=== PATIENT | female | born 1990 | race Two or more races ===

== ENCOUNTER 2017-08-31 04:16 | Emergency (ER) | payer SELFPAY ==
[~2017-08-31] VITALS: Ht 165.1 cm; Wt 99.8 kg
--- NOTE | 2017-08-31 04:19 | NUR ---
PT BIB [facility] C/C OF UNWITNESSED SEIZURE. PT AA/O X4. NAD. ST ON MONITOR AT 124. AMBULATORY FROM AMBULANCE GURNEY TO HOSPITAL BED. MD AT BEDSIDE FOR EVAL. AWAITING ORDERS.
[2017-08-31] MEDS ORDERED: IV NS 0.9% 500 ML BAG IV ONE (04:30)
[2017-08-31] MEDS ORDERED: ONDANSETRON HCL/PF 4 MG/2 ML VIAL IVP ONE (04:30)
[2017-08-31] MEDS ORDERED: MORPHINE SULFATE INJ 2 MG/ML DISP.SYRIN IV ONE (04:30)
[2017-08-31] MEDS ORDERED: ONDANSETRON HCL/PF 4 MG/2 ML VIAL ONE (04:35)
[2017-08-31] MEDS ORDERED: MORPHINE SULFATE INJ 2 MG/ML DISP.SYRIN ONE (04:36)
--- NOTE | 2017-08-31 05:00 | NUR ---
LAB AT BEDSIDE FOR BLOOD AND URINE PROCEDURE.
[2017-08-31 05:07] LABS: BASOPHILS # (AUTO) 0.1 /CMM (0.0-0.2); BASOPHILS % (AUTO) 0.5 % (0.0-2.0); EOSINOPHILS % (AUTO) 0.6 % (0.0-6.0); HEMATOCRIT 37 % (33-45); HEMOGLOBIN 12.3 g/dL (11.5-14.8); LYMPHOCYTES % (AUTO) 38.9 % (20.0-44.0); MEAN CORPUSCULAR HEMOGLOBIN 31 PG (26.0-33.0); MEAN CORPUSCULAR HGB CONC 33 g/dl (31.0-36.0); MEAN CORPUSCULAR VOLUME 93 fL (82-100); MONOCYTES # (AUTO) 0.9 /CMM (0.1-1.30); PLATELET COUNT (AUTO) 562 /CMM (150-450); RDW COEFFICIENT OF VARIATION 13.3 (11.5-15.0); RED BLOOD CELL COUNT(AUTO) 3.99 MIL/uL (4.0-5.2); WHITE BLOOD COUNT (AUTO) 18.1 K/uL (4.3-11.0)
[2017-08-31 05:23] LABS: CALCIUM, SERUM 9.1 mg/dL (8.5-10.1); CARBON DIOXIDE 19 mmol/L (21-32); CHLORIDE 102 mmol/L (98-107); CREATININE 0.9 mg/dL (0.6-1.3); GLUCOSE 115 mg/dL (74-106); SODIUM SERUM 137 mmol/L (136-145); UREA NITROGEN, BLOOD 11 mg/dL (7-18)
--- NOTE | 2017-08-31 05:27 | NUR ---
Betty conway in [facility] - 08/31/17 at 0530 by JAIDA X RAY AT BEDSIDE
[2017-08-31 05:29] LABS: ALANINE AMINOTRANSFERASE 28 U/L (12-78); ALBUMIN 3.8 g/dL (3.4-5.0); ALCOHOL, BLOOD < 3 mg/dL (0-0); ALKALINE PHOSPHATASE 119 U/L (46-116); ASPARTATE AMINOTRANSFERASE 14 U/L (15-37); BILIRUBIN,TOTAL 0.1 mg/dL (0.2-1.0); TOTAL PROTEIN, SERUM 8.1 g/dL (6.4-8.2)
--- NOTE | 2017-08-31 05:30 | NUR ---
PT BROUGHT TO CT
[2017-08-31 05:38] LABS: INR 0.91 (0.87-1.13)
[2017-08-31 06:22] VITALS: BP 119/76
--- NOTE | 2017-08-31 06:24 | NUR ---
Patient discharged to home in stable condition. Written and verbal after care instructions given. Patient verbalizes understanding of instruction. Pt instructed not to drive or operate any heavy machinery. Pt understood and is being taken home by friend. pt stable condition. nad. vss Addendum: 08/31/17 at 0628 by JAIDA Pt. AA/Ox4. ambulated out with steady gait. no ataxia noted.
== END 2017-08-31 06:23 | disposition home or self-care (01) ==
LOC: ER 04:18
DX: R56.9 Unspecified convulsions (principal); G43.909 Migraine, unspecified, not intractable, without status migrainosus; R79.1 Abnormal coagulation profile
CPT/HCPCS: 36415; 70450; 71045; 80048; 80076; 80305; 82962; 85025; 85730; 93005; 96374; 96375; 99285; A4606; G0480; J2270; J2405; J7040; Z7610